=== PATIENT | male | born 1950 | race Caucasian/White ===

== ENCOUNTER 2021-12-03 04:45 | Emergency (ER) | payer MEDICARE, OTHER ==
[2021-12-03 05:22] LABS: HEMOGLOBIN 16.3 gm/dl (14.0-17.5); RED BLOOD COUNT 5.14 M/UL (4.20-5.50); WHITE BLOOD COUNT 9.9 K/UL (4.5-11.0)
[2021-12-03 05:37] LABS: BUN/CREATININE RATIO 13 (0-10)
== END 2021-12-03 10:50 ==
LOC: ER1 04:45
PROVIDERS: Student in an Organized Health Care Education/Training Program
DX: K12.2 Cellulitis and abscess of mouth (principal); I11.9 Hypertensive heart disease without heart failure; Z90.49 Acquired absence of other specified parts of digestive tract; Z95.5 Presence of coronary angioplasty implant and graft; Z88.2 Allergy status to sulfonamides; Z20.822 Contact with and (suspected) exposure to COVID-19
CPT/HCPCS: 70491; 71045; 80053; 82550; 82553; 84484; 85025; 85652; 86140; 87040; 93005; 96372; 96374; 96375; 99285; J0295; J1100; J2270; J2405; Q9967; U0002

== ENCOUNTER → 2022-02-20 | Outpatient (CLI) | payer MEDICARE, OTHER | LOC: LAB 10:54 | DX: Z20.822 Contact with and (suspected) exposure to COVID-19 (principal) | CPT/HCPCS: 36415; U0002 ==

== ENCOUNTER 2022-02-28 18:56 | Emergency (ER) | payer MEDICARE, OTHER ==
[2022-02-28 19:31] LABS: HEMOGLOBIN 16.4 gm/dl (14.0-17.5); RED BLOOD COUNT 5.14 M/UL (4.20-5.50); WHITE BLOOD COUNT 8.1 K/UL (4.5-11.0)
[2022-02-28 19:44] LABS: BUN/CREATININE RATIO 15 (0-10)
== END 2022-03-01 00:19 | disposition home or self-care (01) ==
LOC: ER1 18:56
PROVIDERS: Physician Assistant
DX: J95.863 Postprocedural seroma of a respiratory system organ or structure following other procedure (principal); R40.2410 Glasgow coma scale score 13-15, unspecified time; I25.2 Old myocardial infarction; K21.9 Gastro-esophageal reflux disease without esophagitis; I10 Essential (primary) hypertension; Z90.49 Acquired absence of other specified parts of digestive tract; Z90.89 Acquired absence of other organs
CPT/HCPCS: 70491; 80053; 85025; 85652; 86140; 99284; Q9967